=== PATIENT | female | born 1995 | race Caucasian/White ===

== ENCOUNTER 2021-02-01 02:42 | Emergency (ER) | payer BC ==
[2021-02-01] MEDS ORDERED: Sodium Chloride 0.9% 2.5 ML Syringe FLUSH PRN (02:52)
[2021-02-01] MEDS ORDERED: Sodium Chloride 0.9% 10 ML Syringe FLUSH PRN (02:52)
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
== END 2021-02-01 05:06 | disposition home or self-care (01) ==
LOC: MW.ED 02:42
DX: T71.9XXA Asphyxiation due to unspecified cause, initial encounter (principal); S00.03XA Contusion of scalp, initial encounter; S10.93XA Contusion of unspecified part of neck, initial encounter; S00.83XA Contusion of other part of head, initial encounter; Y04.0XXA Assault by unarmed brawl or fight, initial encounter
CPT/HCPCS: 70450; 70450-26; 70486; 70486-26; 71045; 71045-26; 72040; 72040-26; 73030-26-LT; 73030-LT; 73130-26-LT; 73130-LT; 80305-QW; 81001; 81025; 93005; 99285-25

== ENCOUNTER 2024-06-24 00:42 | Emergency (ER) | payer SELFPAY | END 2024-06-24 01:22 | disposition home or self-care (01) | LOC: MW.ED 00:42 | DX: H61.22 Impacted cerumen, left ear (principal) | CPT/HCPCS: 99282; 99283 ==